=== PATIENT | female | born 1990 | race Caucasian/White ===

== ENCOUNTER 2017-09-08 23:23 | Emergency (ER) | payer OTHER ==
[~2017-09-08] VITALS: Ht 170.2 cm; Wt 65.8 kg
[~2017-09-08 23:23] MED LIST: BIRTH CONTROL; CIPROFLOXACIN500 M3 PO; HYDROCODON-ACE1 EAC7 PO; IRON325 PO; PYRIDIUM200 MG PO; TRINATE TABLET1 TAB PO
[2017-09-08 23:33] VITALS: BP 131/83
[2017-09-09] MEDS ORDERED: KEFLEX500 M1 PO (00:15)
== END 2017-09-09 00:34 | disposition home or self-care (01) ==
LOC: M.ERS 23:23
DX: L03.114 Cellulitis of left upper limb (principal); W49.04XA Ring or other jewelry causing external constriction, initial encounter; Y93.89 Activity, other specified; Y92.89 Other specified places as the place of occurrence of the external cause; Y99.8 Other external cause status

== ENCOUNTER → 2019-11-14 | Outpatient (CLI) | payer OTHER ==
[~2019-11-14] MED LIST changes: +KEFLEX500 M1 PO
== END ==
LOC: M.ULTRA 09:24
PROVIDERS: ATTEND Nurse Practitioner Family
DX: E04.9 Nontoxic goiter, unspecified (principal)